=== PATIENT | male | born 1965 | race Caucasian/White ===

== ENCOUNTER 2016-12-30 17:07 | Emergency (ER) | payer BC, OTHER ==
[~2016-12-30] VITALS: Ht 188 cm; Wt 204.1 kg
[~2016-12-30 17:07] MED LIST: ALBU18; MYC15TP TOP
[2016-12-30 17:16] VITALS: BP 162/81
[2016-12-30 18:26] LABS: Basophils # (auto) 0 uL; Basophils % (auto) 0.5 % (0.0-2.0); CONDITION Y; Eosinophils # (auto) 0.2 uL; Eosinophils % (auto) 2.3 % (0.0-7.0); Hematocrit 41.2 % (41.0-53.0); Hemoglobin 13.9 g/dL (13.5-17.5); Lymphocytes # (auto) 2.2 uL; Lymphocytes % (auto) 28.2 % (10.0-50.0); Mean Corpuscular Hemoglobin 29.1 pg (28.0-32.0); Mean Corpuscular Hgb Conc. 33.7 g/dL (32.0-36.0); Mean Corpuscular Volume 86.3 fL (80.0-100.0); Mean Platelet Volume 9.4 fL (7.4-10.4); Monocytes # (auto) 0.7 uL; Monocytes % (auto) 9.2 % (0.0-12.0); Neutrophils # (auto) 4.7 uL; Neutrophils % (auto) 59.8 % (37.0-80.0); Platelet Count (auto) 205 10^3/uL (140-450); Red Cell Distribution Width 13.3 % (11.6-16.0); White Blood Cell 7.9 10^3/uL (4.4-10.8)
[2016-12-30 18:37] LABS: Albumin 3.4 g/dL (3.4-5.0); Anion Gap 9 (5-15); Blood Urea Nitrogen 15 mg/dL (7-18); Calcium 8.3 mg/dL (8.5-10.1); Carbon Dioxide 25 mmol/L (21-32); Chloride 111 mmol/L (98-107); Glucose 97 mg/dL (74-106); Potassium 3.8 mmol/L (3.5-5.1); Sodium 145 mmol/L (136-145)
[2016-12-30 18:39] LABS: Aspartate Aminotransferase 23 U/L (15-37); BUN/Creatinine Ratio 13.5; GFR African American 90 mL/min; GFR Non-African American 75 mL/min
[2016-12-30 18:43] LABS: Alkaline Phosphatase 37 U/L (45-117); Bilirubin, Total 0.5 mg/dL (0.2-1.0); Total Protein 6.9 g/dL (6.4-8.2)
== END 2016-12-31 00:42 | disposition left against medical advice (07) ==
LOC: ER 17:08
DX: R06.02 Shortness of breath (principal); Z53.21 Procedure and treatment not carried out due to patient leaving prior to being seen by health care provider
CPT/HCPCS: 36415; 71020; 80053; 84484; 85025

== ENCOUNTER 2017-10-29 18:15 | Inpatient (IN) | payer SELFPAY ==
[~2017-10-29] VITALS: Ht 188 cm; Wt 180.1 kg
[2017-10-29 19:08] LABS: Basophils # (auto) 0.1 uL; Eosinophils # (auto) 0.3 uL; Hematocrit 47.5 % (41.0-53.0); Hemoglobin 15.8 g/dL (13.5-17.5); Lymphocytes # (auto) 2.4 uL; Lymphocytes % (auto) 27.6 % (10.0-50.0); Mean Corpuscular Hemoglobin 29.6 pg (28.0-32.0); Mean Corpuscular Hgb Conc. 33.3 g/dL (32.0-36.0); Mean Corpuscular Volume 88.9 fL (80.0-100.0); Monocytes # (auto) 0.8 uL; Monocytes % (auto) 9.2 % (0.0-12.0); Neutrophils # (auto) 5.2 uL; Neutrophils % (auto) 59.2 % (37.0-80.0); Nucleated Red Blood Cells % 0.2 %; Platelet Count (auto) 193 10^3/uL (140-450); Red Blood Cells 5.35 10^6/uL (4.5-5.90); Red Cell Distribution Width 13.1 % (11.8-14.3); White Blood Cell 8.7 10^3/uL (4.4-10.8)
[2017-10-29 19:25] LABS: Albumin 3.3 g/dL (3.4-5.0); Potassium 4.6 mmol/L (3.5-5.1)
[2017-10-29 19:29] LABS: Bilirubin, Total 0.6 mg/dL (0.2-1.0); Total Protein 7.4 g/dL (6.4-8.2)
[2017-10-29 19:30] LABS: BUN/Creatinine Ratio 19.4
[2017-10-29] MEDS ORDERED: InsuLIN REG 1unit/0.01ml Soln (100units/ml) ONE (21:58)
[2017-10-29] MEDS ORDERED: InsuLIN REG 1unit/0.01ml Soln (100units/ml) IV ONE (23:00)
[2017-10-29] MEDS ORDERED: SODIUM CHLORIDE 0.9% 2,000 ML IV ONE (23:00)
[2017-10-29 23:04] LABS: Lipase 309 U/L (73-393)
[2017-10-29 23:42] LABS: Urine Bacteria NONE SEEN /hpf (None Seen); Urine Blood Negative /uL (Negative); Urine Specific Gravity 1.034 (1.001-1.035); Urine WBC <1 /hpf (0 - 3)
[2017-10-29 23:49] LABS: Alcohol, Urine < 3.0 mg/dL (0-5); Amphetamine Screen, Urine NEGATIVE (NEGATIVE); Barbiturate Scree,Urine NEGATIVE (NEGATIVE); Benzodiazephine Screen, Urine NEGATIVE (NEGATIVE); Cannabinoid Screen, Urine NEGATIVE (NEGATIVE); Cocaine Screen, Urine NEGATIVE (NEGATIVE); Opiate Scree,Urine NEGATIVE (NEGATIVE); Phencyclidine Screen, Urine NEGATIVE (NEGATIVE)
[2017-10-30] MEDS ORDERED: InsuLIN REG 1unit/0.01ml Soln (100units/ml) IV ONE ×2 (02:00→02:15)
[2017-10-30] MEDS ORDERED: HYDROcodone-ACET 5/325MG TAB PO PRN (02:30)
[2017-10-30] MEDS ORDERED: DEXTROSE (50%) 50ML SYRG IV PRN (02:30)
[2017-10-30] MEDS ORDERED: ONDANSETRON HCL 4 MG/2 ML VIAL IV PRN (02:30)
[2017-10-30] MEDS ORDERED: ACETAMINOPHEN 500 MG TAB PO PRN (02:30)
[2017-10-30] MEDS ORDERED: MORPHINE SULFATE 8mg/ml INJ SDV IV PRN (02:30)
[2017-10-30 03:30] VITALS: BP 122/76
[2017-10-30] MEDS: ACCU-CHEK COMFORT CURVE STRIP VI SCH ×4 (03:42→16:40)
[2017-10-30] MEDS: InsuLIN REG 1unit/0.01ml Soln (100units/ml) SC SCH ×4 (03:49→16:40)
[2017-10-30 05:21] VITALS: BP 109/53
[2017-10-30 07:30] LABS: Basophils # (auto) 0.1 uL; Basophils % (auto) 0.9 % (0.0-2.0); Eosinophils # (auto) 0.3 uL; Eosinophils % (auto) 3.8 % (0.0-7.0); Hematocrit 43.5 % (41.0-53.0); Hemoglobin 14.8 g/dL (13.5-17.5); Lymphocytes # (auto) 2.3 uL; Lymphocytes % (auto) 27.9 % (10.0-50.0); Mean Corpuscular Hemoglobin 30.3 pg (28.0-32.0); Mean Corpuscular Hgb Conc. 34.1 g/dL (32.0-36.0); Mean Corpuscular Volume 88.7 fL (80.0-100.0); Monocytes # (auto) 0.7 uL; Neutrophils # (auto) 4.7 uL; Neutrophils % (auto) 58.4 % (37.0-80.0); Nucleated Red Blood Cells % 0.1 %; Platelet Count (auto) 148 10^3/uL (140-450); Red Cell Distribution Width 13.1 % (11.8-14.3); White Blood Cell 8.1 10^3/uL (4.4-10.8)
[2017-10-30 07:43] LABS: BUN/Creatinine Ratio 22.4; Calcium 8.4 mg/dL (8.5-10.1)
[2017-10-30 08:00] VITALS: BP 115/83
[2017-10-30 08:21] VITALS: BP 115/83
[2017-10-30] MEDS ORDERED: metFORMIN HYDROCHLORIDE 500 MG TAB PO SCH (10:00)
[2017-10-30] MEDS ORDERED: SODIUM CHLORIDE 0.9% 1,000 ML IV SCH ×2 (12:30)
[2017-10-30 12:36] VITALS: BP 111/75
[2017-10-30] MEDS ORDERED: DOCUSATE SOD 100 MG CAP PO PRN (16:15)
[2017-10-30 16:59] VITALS: BP 134/83
[2017-10-30] MEDS ORDERED: DOCUSATE SOD 100 MG CAP PO SCH (22:00)
== END 2017-10-30 17:45 | disposition home or self-care (01) | DRG 638 ==
LOC: ER 18:15 → OVERFLOW 18:16 → WEST WING 10-30 03:10
PROVIDERS: ADMIT Nurse Practitioner Family; ATTEND Nurse Practitioner Family
DX: E11.10 Type 2 diabetes mellitus with ketoacidosis without coma (principal); E87.1 Hypo-osmolality and hyponatremia; E66.01 Morbid (severe) obesity due to excess calories; Z68.43 Body mass index [BMI] 50.0-59.9, adult; E86.0 Dehydration; J20.9 Acute bronchitis, unspecified; Z79.84 Long term (current) use of oral hypoglycemic drugs; Z90.49 Acquired absence of other specified parts of digestive tract; Z91.19 Patient's noncompliance with other medical treatment and regimen
CPT/HCPCS: 36415; 71045; 74018; 80048; 80053; 80307; 81001; 82010; 82962; 83036; 83690; 84484; 85025; 93005; 96361; 96374; 96375; J1815

== ENCOUNTER 2018-10-23 01:50 | Emergency (ER) | payer BC ==
[~2018-10-23] VITALS: Ht 188 cm; Wt 176.9 kg
[2018-10-23] MEDS ORDERED: IPRATROPIUM BROM 0.5 MG/2.5ML INH SOL ONE (02:28)
[2018-10-23] MEDS ORDERED: ALBUTEROL SULF 2.5 MG/0.5ML(0.5%) NEB SOLN ONE (02:28)
[2018-10-23] MEDS ORDERED: ALBUTEROL SULF 2.5 MG/0.5ML(0.5%) NEB SOLN NEB ONE (06:15)
[2018-10-23] MEDS ORDERED: IPRATROPIUM BROM 0.5 MG/2.5ML INH SOL NEB ONE (06:15)
[2018-10-23] MEDS ORDERED: methylPREDNISolone SOD SUCC 125 MG/2 ML VL IV ONE (06:45)
[2018-10-23 07:57] LABS: Basophils % (auto) 0.9 % (0.0-2.0); Eosinophils % (auto) 1.5 % (0.0-7.0); Lymphocytes % (auto) 25.8 % (10.0-50.0); Monocytes % (auto) 11.4 % (0.0-12.0); Neutrophils % (auto) 60.4 % (37.0-80.0); Nucleated Red Blood Cells % 0.3 %; White Blood Cell 8.8 10^3/uL (4.4-10.8)
[2018-10-23 07:58] LABS: Basophils # (auto) 0.1 uL; Eosinophils # (auto) 0.1 uL; Hematocrit 48.5 % (41.0-53.0); Hemoglobin 16.5 g/dL (13.5-17.5); Lymphocytes # (auto) 2.3 uL; Mean Corpuscular Hemoglobin 29.2 pg (28.0-32.0); Mean Corpuscular Hgb Conc. 34.1 g/dL (32.0-36.0); Mean Corpuscular Volume 85.5 fL (80.0-100.0); Neutrophils # (auto) 5.3 uL; Platelet Count (auto) 206 10^3/uL (140-450); Red Blood Cells 5.67 10^6/uL (4.5-5.90); Red Cell Distribution Width 13.3 % (11.8-14.3)
[2018-10-23 09:17] LABS: Potassium 4.1 mmol/L (3.5-5.1); Sodium 135 mmol/L (136-145)
[2018-10-23 09:18] LABS: Anion Gap 8 (5-15); Carbon Dioxide 24 mmol/L (21-32); Chloride 103 mmol/L (98-107); Glucose 270 mg/dL (74-106)
[2018-10-23 09:35] LABS: Alanine Aminotransferase 41 U/L (16-61); Albumin 3.8 g/dL (3.4-5.0); Alkaline Phosphatase 62 U/L (45-117); Aspartate Aminotransferase 27 U/L (15-37); BUN/Creatinine Ratio 11.4; Bilirubin, Total 0.6 mg/dL (0.2-1.0); Blood Urea Nitrogen 16 mg/dL (7-18); Calcium 8.8 mg/dL (8.5-10.1); GFR African American 69 mL/min; GFR Non-African American 57 mL/min; Magnesium 2.1 mg/dL (1.6-2.6); Total Protein 7.8 g/dL (6.4-8.2)
[2018-10-23 10:23] VITALS: BP 121/71
== END 2018-10-23 10:22 | disposition home or self-care (01) ==
LOC: ER 06:05
DX: J20.9 Acute bronchitis, unspecified (principal); I50.9 Heart failure, unspecified; E11.9 Type 2 diabetes mellitus without complications; Z90.49 Acquired absence of other specified parts of digestive tract; Z90.89 Acquired absence of other organs
CPT/HCPCS: 36415; 71045; 80053; 83735; 83880; 84443; 84484; 85025; 93005; 94640; 96374; 99284; J2930; J7611; J7644

== ENCOUNTER 2025-02-20 08:30 | Emergency (ER) | payer BC, OTHER ==
[~2025-02-20] VITALS: Ht 188 cm; Wt 150.0 kg
[2025-02-20 08:45] VITALS: BP 123/91; TEMP 97.8
[2025-02-20 08:50] VITALS: PULSE 128; RESP 38; O2SAT 98
--- NOTE | 2025-02-20 08:50 | ED.PDOC ---
SOB-HPI HPI Comments This is a 59 year old male ROSELYN presenting to the ED with chief complaint of SOB. Patient reports that he has been generally ill for the past 4 days, however, he started to experience SOB since this morning around 0740. Patient relays that his symptoms feel similar to the time he had a previous PE. EMS states that the patient was 82% on RA, 88% on 4L of O2, and 94% on 25L non- rebreather. Patient denies any chest pain, cough, N/V, headache, dizziness, or syncope. Chief Complaint: Shortness of Breath Time Seen by MD: 08:44 Primary Care Provider: NOEMY Herrera notes: Nurses Notes, Traditional Chinese Herbalist Notes, Medications, Allergies Information Source: Patient, Emergency Med Personnel Mode of Arrival: EMS Severity: Moderate Timing: Days Duration: Since onset Context: At Rest PE Risk Factors: None History of: DVT/PE Prehospital treatment: Oxygen Modifying Factors: Nothing Past Medical History PAST MEDICAL HISTORY: DM, PE Past Medical History (Other): DVT Surgical History: Cholecystectomy, Tonsillectomy Family History Family History: Reviewed,noncontributory to illness, No family hx of Heart jonathon Social History Smoker: Non-Smoker Alcohol: Denies ETOH Use Drugs: Denies Drug Use Lives In: Home Constitutional: denies: chills, diaphoresis, fatigue, fever, malaise, sweats, weakness, others EENTM: denies: blurred vision, double vision, ear bleeding, ear discharge, ear drainage, ear pain, ear ringing, eye pain, eye redness, hearing loss, mouth pain, mouth swelling, nasal discharge, nose bleeding, nose congestion, nose pain, photophobia, tearing, throat pain, throat swelling, voice changes, others Respiratory: reports: shortness of breath; denies: cough, hemoptysis, orthopnea, SOB at rest, SOB with excertion, stridor, wheezing, others Cardiovascular: denies: chest pain, dizzy spells, diaphoresis, Dyspnea on exertion, edema, irregular heart beat, left arm pain, lightheadedness, palpitations, PND, syncope, others Gastrointestinal: denies: abdomen distended, abdominal pain, blood streaked bowels, constipated, diarrhea, dysphagia, difficulty swallowing, hematemesis, melena, nausea, poor appetite, poor fluid intake, rectal bleeding, rectal pain, vomiting, others Genitourinary: denies: burning, dysuria, flank pain, frequency, hematuria, incontinence, penile discharge, penile sore, pain, testicle pain, testicle swelling, urgency, others Neurological: denies: dizziness, fainting, headache, left sided numbness, left sided weakness, numbness, paresthesia, pre-existing deficit, right sided numbness, right sided weakness, seizure, speech problems, tingling, tremors, weakness, others Musculoskeletal: denies: back pain, gout, joint pain, joint swelling, muscle pain, muscle stiffness, neck pain, others Integumetry: denies: bruises, change in color, change in hair/nails, dryness, laceration, lesions, lumps, rash, wounds, others Allergic/Immunocompromised: denies: Difficulty Healing, Frequent Infections, Hives, Itching, others Hematologic/Lymphatic: denies: anemia, blood clots, easy bleeding, easy bruising, swollen glands, others Endocrine: denies: excessive hunger, excessive sweating, excessive thirst, excessive urination, flushing, intolerance to cold, intolerance to heat, unexplained weight gain, unexplained weight loss, others Psychiatric: denies: anxiety, bipolar disorder, depression, hopeless, panic disorder, schizophrenia, sleepless, suicidal, others All Other Systems: Reviewed and Negative Physical Exam General Appearance: Mild Distress, Normal HEENT: Normal ENT Inspection, Pharynx Normal, TMs Normal Neck: Full Range of Motion, Non-Tender, Normal, Normal Inspection Respiratory: Chest Non-Tender, Lungs Clear, No Accessory Muscle Use, Normal Breath Sounds, Other (Tachypneic) Cardiovascular: No Edema, No JVD, No Murmur, No Gallop, Normal Peripheral Pulses, Tachycardia Breast Exam: Deferred Gastrointestinal: No Organomegaly, Non Tender, No Pulsatile Mass, Normal Bowel Sounds, Soft Genitalia: Deferred Pelvic: Deferred Rectal: Deferred Extremities: No calf tenderness, Normal capillary refill, Normal inspection, Normal range of motion, Non-tender, No pedal edema Musculoskeletal : Apperance: Normal Neurologic: Alert, pattern duplicator II-XII nml as Tested, No Motor Deficits, Normal Affect, Normal Mood, No Sensory Deficits Cerebellar Function: Normal Reflexes: Normal Skin: Dry, Normal Color, Warm Lymphatic: No Adenopathy Was a procedure done? Was a procedure done?: No Differential Dx Differential Diagnosis: Pneumonia, Pulmonary Embolism, Respiratory Distress X-Ray, Labs, Meds, VS Vital Signs Date Time Temp Pulse Resp B/P (MAP) Pulse Ox O2 Delivery O2 Flow Rate FiO2 02/20/25 10:10 0 02/20/25 10:04 Ambu-Bag 0 02/20/25 09:15 56 02/20/25 08:50 128 38 98 Non-Rebreather 15 N/A 02/20/25 08:45 97.8 128 35 123/91 (102) 98 97.8 02/20/25 08:37 97.9 120 24 111/86 95 97.9 02/20/25 08:33 123 X-Ray, Labs, Meds, VS Comment This 59-year-old male presents secondary to respiratory distress. At presentation, the patient had a relatively benign physical exam he had had a prolonged saturation on a face mask. Shortly after presenting, however, the patient acutely decompensated, became pulseless and apneic. CPR was initiated a nd, fortunately, we are unable to regain sustained Rosc.. For details of the code blue, please see nursing notes. Time of 1ST Reevaluation: 09:23 Reevaluation 1ST: N/A (Patient .) Patient Education/Counseling: Diagnosis, Treatment Family Education/Counseling: No Family Present SEPSIS Sepsis Screen Date sepsis recognized/suspect: Feb 20, 2025 Time Sepsis recognized/suspect: 08 Recent Procedure: No On Antibiotic Therapy: No Respiratory Rate >20: Yes Heart Rate >90: Yes Temp<36 C (96.8 F) or >38.3 C: No SBP <90 or MAP <65 mmHG: No New Acute Mental Status Change: No Is the patient on CPAP, BIPAP,: No Physician Orders Electrocardigram (02/20/25 08:41) Chest Xray 1 View (02/20/25 08:42) Abg W/ Co-Ox (02/20/25 08:42) Drug Screen (02/20/25 08:49) Vital Signs Date Time Temp Pulse Resp B/P (MAP) Pulse Ox O2 Delivery O2 Flow Rate FiO2 02/20/25 10:10 0 02/20/25 10:04 Ambu-Bag 0 02/20/25 09:15 56 02/20/25 08:50 128 38 98 Non-Rebreather 15 N/A 02/20/25 08:45 97.8 128 35 123/91 (102) 98 97.8 02/20/25 08:37 97.9 120 24 111/86 95 97.9 02/20/25 08:33 123 Departure 1 Departure Time of Disposition: 09:23 Impression: Primary Impression: Respiratory distress Additional Impression: Respiratory failure Disposition: 20 Condition: Other Critical Care Note Critical Care Time?: Yes (45 min-critical care time only) Critical care comment: Total critical care time: Approximately 36 minutes Due to a high probability of clinically significant, life threatening deterioration, the patient required my highest level of preparedness to intervene emergently and I personally spent this critical care time directly and personally managing the patient. This critical care time included obtaining a history; examining the patient; pulse oximetry; ordering and review of studies; arranging urgent treatment with development of a management plan; evaluation of patient's response to treatment; frequent reassessment; and, discussions with other providers. This critical care time was performed to assess and manage the high probability of imminent, life-threatening deterioration that could result in multi-organ failure. It was exclusive of separately billable procedures and treating other patients and teaching time. Please see MDM section and the rest of the note for further information on patient assessment and treatment. Stability Stability form required: No Heart Score Heart Score: Heart Score Response (Comments) Value History N/A 0 EKG N/A 0 Age N/A 0 Risk Factors N/A 0 Troponin N/A 0 Total 0 I personally scribed for RICO MAGDALENO MD ([email or web address]) on 02/20/25 at 08:50. Electronically submitted by Nik Ca ([email or web address]). I personally scribed for RICO MAGDALENO MD ([email or web address]) on 02/20/25 at 09:25. Electronically submitted by Nik Ca ([email or web address]). RICO MAGDALENO MD Feb 20, 2025 08:50
[2025-02-20] MEDS ORDERED: IPRATROPIUM BROM 0.5 MG/2.5ML INH SOL NEB ONE (09:00)
[2025-02-20] MEDS ORDERED: ALBUTEROL SULF 2.5 MG/0.5ML(0.5%) NEB SOLN NEB ONE (09:00)
[2025-02-20] MEDS ORDERED: NOREPINEPHRINE 8 MG/250ML KIT 250 ML IV ONE (09:11)
[2025-02-20 09:15] VITALS: PULSE 56
--- NOTE | 2025-02-20 09:23 | DVH ---
CHEST RADIOGRAPH Indication: sob Technique: Single frontal view of the chest was obtained COMPARISON: None FINDINGS: Lines and Tubes: None Lungs: Right lower lobe airspace disease Pleura: No effusion. No pneumothorax. Cardiomediastinal contours: Cardiomegaly Bones: Unremarkable IMPRESSION: Right lower lobe airspace disease.
--- NOTE | 2025-02-20 10:04 | RESUS ---
CHILO DAVID ASSESSSMENT History of Events History of Events: Patient originally arrived via EMS on a non-rebreather due to sudden onset shortness of breath. Per , patient not feeling well last 2 days. Shortly after arrival, patient became anxious, "couldn't breath, eyes rolled back, heart rate dropped to 40's and became unresponsive." Code david was called. CPR initiated and patient was intubated. See below. Initial Information Date: Feb 20, 2025 Time: 08:57 Location of Arrest: ER (bed 4) Arrest Witnessed: Yes CPR started initial time: 08:58 CPR started by whom: Hospital Staff Pre-Hospital Care: ACLS Type of arrest: Respiratory, Adult, Witnessed Spontaneous Respirations: No Pulse Present: No Monitoring: ECG, Pulse Oximetry, Telemetry Crash Cart Opened and Supplies: Yes Airway Ventilation Breathing at Onset: Apneic Oxygen Delivery Method: Ambu-Bag Artificial Ventilation: Bag/Mask, Bag/Endo tube Intubation Time: :58 Intubation Size: 8.0 cuffed Intubated by: Dr. Livingston Intubation Attempts: 1 Intubated orally: Yes Intubated Nasaly: No Tube secured at: 24 Cricoid pressure done: Yes CO2 indicator used: Yes Confirmation: Auscultation, Exhaled CO2 Suctioning (Oral/Tracheal): No Circulation Circulation #1: Time: 08:58 Pulse Rate (adult): 0 Blood Pressure Systolic: 0 Blood Pressure Diastolic: 0 Circulation #2: Time: 09:23 Pulse Rate (adult): 0 Blood Pressure Systolic: 0 Blood Pressure Diastolic: 0 Temperature (Fahrenheit): 94.5 Circulation Comment: Multiple attempts made upon ROSC to obtain blood pressures with no success. Procedure - IV Procedure - IV : IV Side: Left IV Location: Antecubital IV Catheter Type: Saline Lock IV Placed: Pre-Hospital IV Placed by EMS IV Gauge: 18 IV Line Care: Saline Flush Medications & Response Medications and Responses #1: ADULT Medications Given ADULT: Epinephrine 1 mg Route of Administration: IV Heart Rate: 0 EKG Rhythm: Asystole Blood Pressure Systolic: 0 Blood Pressure Diastolic: 0 EKG Rhythm: Asystole Medications and Responses #2: Medication Time: 09:00 ADULT Medications Given ADULT: Epinephrine 1 mg Route of Administration: IV Heart Rate: 0 EKG Rhythm: Asystole Blood Pressure Systolic: 0 Blood Pressure Diastolic: 0 O2 Sat by Pulse Oximetry: 59 EKG Rhythm: Asystole Medications and Responses #3: Medication Time: 09:03 ADULT Medications Given ADULT: Epinephrine 1 mg, Sodium Bacarbinate 50 meq Route of Administration: IV Heart Rate: 0 EKG Rhythm: Asystole Blood Pressure Systolic: 0 Blood Pressure Diastolic: 0 O2 Sat by Pulse Oximetry: 63 EKG Rhythm: Sinus Rhythm (faint pulse) Medications and Responses #4: Medication Time: 09:06 ADULT Medications Given ADULT: Epinephrine 1 mg Route of Administration: IV Heart Rate: 98 EKG Rhythm: Sinus Rhythm (Faint pulse. Epinephrine repeated per Dr. Livingston due to faint pulse.) Blood Pressure Systolic: 0 Blood Pressure Diastolic: 0 EKG Rhythm: Sinus Bradycardia Medications and Responses #5: Medication Time: 09:07 ADULT Medications Given ADULT: Epinephrine 1 mg Route of Administration: IV Heart Rate: 50 EKG Rhythm: Sinus Bradycardia Blood Pressure Systolic: 0 Blood Pressure Diastolic: 0 EKG Rhythm: PEA Medications and Responses #6: Medication Time: 09:10 ADULT Medications Given ADULT: Sodium Bacarbinate 50 meq Route of Administration: IV Heart Rate: 0 EKG Rhythm: PEA Blood Pressure Systolic: 0 Blood Pressure Diastolic: 0 EKG Rhythm: Sinus Rhythm Medications and Responses #7: Medication Time: 09:16 ADULT Medications Given ADULT: Atropine 1 mg, Magnesium Sulfate 2 gm Route of Administration: IV Heart Rate: 0 EKG Rhythm: PEA Blood Pressure Systolic: 0 Blood Pressure Diastolic: 0 O2 Sat by Pulse Oximetry: 64 EKG Rhythm: Asystole Medications and Responses #8: Medication Time: 09:18 ADULT Medications Given ADULT: Epinephrine 1 mg Route of Administration: IV Heart Rate: 0 EKG Rhythm: Asystole Blood Pressure Systolic: 0 Blood Pressure Diastolic: 0 EKG Rhythm: PEA Medications and Responses #9: Medication Time: 09:09 Route of Administration: IV Medication Comment: Levophed 10 ml VIP x1 per Dr. Livingston. Bag concentration 8mg/250ml. Medications and Responses #10: Medication Time: 09:12 Route of Administration: IV Medication Comment: Levophed gtt started 30 mcg/min per verbal order. Nurses Notes [place] Coma Scale Eye Opening: None (1) [place] Coma Scale Verbal: None (1) [place] Coma Scale Motor: None (1) [place] Total: 3 Pupil Reaction: Non Reactive Bedside Blood Glucose: 447 EKG Rhythm: Sinus Rhythm, Sinus Bradycardia, PEA, Asystole Nurses Notes - Comment: 0857- Code blue 0858- CPR initiated and inubated. 0906- ROSC with a faint pulse. 0908- Pulseless, CPR initiated. 0910- ROSC 0916- Pulseless, CPR initiated. 0923- Time Code Ended Time Code Ended: 09:23 Post Arrest Status: Outcome of code: Unsuccessful Patient pronounced by: Dr. Livingston Time patient pronounced: 09:23 Family notified: Yes (0934) Code Team Present: Dr. iLvingston, Nathan RN, Santhosh ERT, Rachel RN, Ivan ERT, Hilda RT, Denis RT, Dot RN, Saad ERT, Rose RN Post Resuscitation Neurologica Pupil Size: 4 Comment: Fixed and dilated. Rose Tabares Feb 20, 2025 10:04
--- NOTE | 2025-02-20 18:58 | ECG ---
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
== END 2025-02-20 09:23 ==
LOC: ER 08:30 → EDBD 08:30 → ER 09:23
DX: J96.90 Respiratory failure, unspecified, unspecified whether with hypoxia or hypercapnia (principal); E11.9 Type 2 diabetes mellitus without complications; Z86.711 Personal history of pulmonary embolism; Z86.718 Personal history of other venous thrombosis and embolism; Z90.49 Acquired absence of other specified parts of digestive tract; Z90.89 Acquired absence of other organs
CPT/HCPCS: 31500; 36600; 71045; 82805; 92950; 93005; 99291